=== PATIENT | female | born 1970 | race African-American/Black ===

== ENCOUNTER → 2016-08-27 | Outpatient (CLI) | payer BC ==
--- NOTE | 2016-08-27 13:29 | RAD ---
DATE: 08/27/2016. EXAM: DIGITAL SCREEN BILAT W/CAD HISTORY: Screening. COMPARISON: 08/18/2015. This study was interpreted with the benefit of Computerized Aided Detection (CAD). FINDINGS: Both breasts are heterogeneously dense, limiting the sensitivity of mammography. No dominant mass or malignant appearing microcalcifications are seen. The axillae are unremarkable. IMPRESSION: No mammographic features suspicious for malignancy are identified. BI-RADS CATEGORY: 1 NEGATIVE RECOMMENDED FOLLOW-UP: 12M 12 MONTH FOLLOW-UP PQRS compliance statement: Patient information was entered into a reminder system with a target due date for the next mammogram. Mammography is a sensitive method for finding small breast cancers, but it does not detect them all and is not a substitute for careful clinical examination. A negative mammogram does not negate a clinically suspicious finding and should not result in delay in biopsying a clinically suspicious abnormality. "Our facility is accredited by the [employer] Mammography [employer]."
== END | disposition home or self-care (01) ==
LOC: MAMMO 10:03
PROVIDERS: ATTEND Internal Medicine
DX: Z12.31 Encounter for screening mammogram for malignant neoplasm of breast (principal)
CPT/HCPCS: G0202; 77067

== ENCOUNTER → 2017-09-02 | Outpatient (CLI) | payer BC | END | disposition home or self-care (01) | LOC: MAMMO 09:52 | DX: Z12.31 Encounter for screening mammogram for malignant neoplasm of breast (principal) | CPT/HCPCS: 77067 ==

== ENCOUNTER → 2018-09-04 | Outpatient (CLI) | payer BC ==
--- NOTE | 2018-09-04 09:41 | RAD ---
DATE: 09/04/2018 EXAM: MAMMO GERALDO SCREENING BILATERAL HISTORY: Screening Mammogram COMPARISON: Mammogram 09/02/2017, 08/27/2016, 08/18/2015 This study was interpreted with the benefit of Computerized Aided Detection (CAD). The breast parenchyma is dense, which could reduce the sensitivity of mammography. Breast parenchyma level density D. FINDINGS: Bilateral digital 2-D and 3-D tomosynthesis CC and MLO views. No suspicious mass, calcification or architectural distortion. No significant change from prior examination IMPRESSION: No mammographic evidence of malignancy. Recommend routine screening mammogram in 12 months. BI-RADS CATEGORY: 1 NEGATIVE RECOMMENDED FOLLOW-UP: 12M 12 MONTH FOLLOW-UP PQRS compliance statement: Patient information was entered into a reminder system with a target due date for the next mammogram. Mammography is a sensitive method for finding small breast cancers, but it does not detect them all and is not a substitute for careful clinical examination. A negative mammogram does not negate a clinically suspicious finding and should not result in delay in biopsying a clinically suspicious abnormality. "Our facility is accredited by the [employer]."
== END | disposition home or self-care (01) ==
LOC: MAMMO 09:03
PROVIDERS: ATTEND Internal Medicine
DX: Z12.31 Encounter for screening mammogram for malignant neoplasm of breast (principal)
CPT/HCPCS: 77063; 77067

== ENCOUNTER 2018-10-31 06:07 | Day surgery (SDC) | payer BC ==
[~2018-10-31] VITALS: Ht 172.7 cm; Wt 171.2 kg
[~2018-10-31 06:07] MED LIST: ASCO100T4 PO; BIOT1TAB2 PO; IBUP-1060 PO; MULT-245 PO
[2018-10-31] MEDS ORDERED: PROCHLORPERAZINE 10 MG/2 ML VIAL. IV PRN (07:00)
[2018-10-31] MEDS ORDERED: ONDANSETRON PF 4 MG/2 ML VIAL. IV PRN (07:00)
[2018-10-31] MEDS ORDERED: IV RINGERS,LACTATED 1000ML 1,000 ML IV SCH (07:00)
[2018-10-31] MEDS ORDERED: HYDROmorphone 2 MG/ML VIAL IV PRN (07:00)
[2018-10-31] MEDS ORDERED: fentaNYL PF VIAL 100 MCG/2 ML VIAL IV PRN ×2 (07:00)
[2018-10-31] MEDS ORDERED: MORPHINE SULFATE 2 MG/ML VIAL. IV PRN (07:00)
[2018-10-31] MEDS ORDERED: ceFAZolin 2GM PREMIX 2 GM/50 ML BAG IV ONE (07:00)
[2018-10-31 07:19] LABS: U PREG PATIENT NEGATIVE (NEG)
[2018-10-31] MEDS ORDERED: fentaNYL PF VIAL 100 MCG/2 ML VIAL ONE (07:22)
[2018-10-31] MEDS ORDERED: MIDAZOLAM HCL/PF 2 MG/2 ML VIAL. ONE (07:22)
[2018-10-31] MEDS ORDERED: LIDOCAINE 2% PF 5 ML VIAL. ONE (07:23)
[2018-10-31] MEDS ORDERED: DEXAMETHASONE SOD PHOS 20 MG/5 ML VIAL. ONE (07:23)
[2018-10-31] MEDS ORDERED: ONDANSETRON PF 4 MG/2 ML VIAL. ONE (07:23)
[2018-10-31] MEDS ORDERED: PROPOFOL 20 ML IV ONE (07:23)
--- NOTE | 2018-10-31 08:59 | PDOC4 ---
Operative Note Operative Note Date: 10/31/2018 Preoperative diagnosis: Left upper arm mass Postoperative diagnosis: Same Procedure: Excision of left upper arm mass Surgeon: Gama Specimen: Left upper arm mass 12 x 10 cm Dictation: Patient is a 48-year-old female was described an enlarging mass of her left upper arm in the triceps area. Procedure of excision was explained to the patient detail risk benefits were also discussed including bleeding infection alternatives to this procedure also discussed with the patient who seemed to understand and gave both verbal and written consent to have the procedure performed. Patient was taken to the operating room placed in supine position general anesthesia was initiated with LMA and her left arm was placed in a gutierres to expose the triceps area this area was prepped and draped usual sterile fashion using ChloraPrep area over the mass was injected with quarter percent Marcaine with epinephrine incision was made with 10 blade scalpel was carried down through the subcutaneous tissue using the cautery by hemostasis the mass was excised with electrocautery appeared to be a lipomatous mass sent for pathology. The wound was then closed in 2 layers a deep layer running 3-0 Vicryl and skin was approximate for septic to Monocryl Mastisol Steri-Strips and 4 x 4's and a Kerlix wrap were applied as a dressing. Patient was awakened expend an operating room taken to recovery in stable condition all sponge instrument needle counts listed as correct estimated blood loss 10 mL TERRY TRUJILLO MD Oct 31, 2018 08:58
--- NOTE | 2018-10-31 09:01 | DISCH ---
DISCHARGE INSTRUCTIONS Condition on Discharge Condition on Discharge: Stable Activity After Discharge Activity Instructions for Disc: Avoid exertion Diet after Discharge Diet after Discharge: Regular Wound Incision Care Other wound/incision instructi: May shower in 24 hours Contacting the after DC Call your doctor for: If your condition worsens Follow-Up Follow up with: Dr. Trujillo in 2 weeks TERRY TRUJILLO MD Oct 31, 2018 09:01
[2018-10-31] MEDS ORDERED: HYDROcodone/APAP 5/325MG 1 TAB TABLET PO ONE ×2 (09:15)
[2018-10-31] MEDS ORDERED: HYDR-3164 PO (09:23)
[2018-10-31 10:00] VITALS: BP 107/70
--- NOTE | 2018-11-04 09:12 | PATHOLOGY ---
[facility] Accession Number: [id number] . 01 Material submitted: . LEFT UPPER ARM LIPOMA . 01 Clinical history: . Left upper lipoma . 02 Diagnosis: Fibroadipose tissue, left upper arm lesion excision: - Lipoma. (JPM:suhas; 11/03/2018) QMS/11/03/2018 . 02 Comment: There is no evidence of malignancy. . 02 Electronically signed: . Jimmy Ji MD, Pathologist NPI- [id number] . 01 Gross description: . The specimen is received in formalin, labeled "Zuleika Henry, left upper arm lipoma", is a roughly oval yellow lobulated adipose tissue weighing 173 g and measuring 12.0 x 8.2 x 2.5 cm. The external surface is partially covered by thin aragon-white membrane. The specimen is inked black, serially sectioned, and cut surfaces reveal hahn-yellow lobulated soft tissue. No hemorrhage or necrosis is identified. The specimen is fixed overnight prior to submission of sections. [employer] Lab Technician sections are submitted in cassettes A1-A6, with two sections in each cassette. ([facility]; 11/02/2018) [facility] . 02 Pathologist provided ICD-10: D17.21 . 02 CPT . 791476 Specimen Comment: A courtesy copy of this report has been sent to Specimen Comment: [phone]. Specimen Comment: Report sent to Performed at: 01 [facility] [address] [id number] MD Tj Kate MD Phone: [phone] Performed at: 02 [facility] [address] [place], [place] [id number] MD Jimmy Ji MD Phone: [phone]
== END 2018-10-31 10:19 | disposition home or self-care (01) ==
LOC: SURG 06:07
PROVIDERS: ATTEND Surgery
DX: D17.22 Benign lipomatous neoplasm of skin and subcutaneous tissue of left arm (principal); Z72.89 Other problems related to lifestyle; Z98.890 Other specified postprocedural states; Z79.899 Other long term (current) drug therapy
CPT/HCPCS: 24071; 81025; 88304; A7015; J0696; J1100; J2001; J2250; J2405; J2704; J3010

== ENCOUNTER → 2019-09-08 | Outpatient (CLI) | payer BC ==
[~2019-09-08] MED LIST changes: +HYDR-3164 PO
--- NOTE | 2019-09-09 08:47 | RAD ---
History: Routine screening. Technique: Bilateral digital mammographic routine views with 2-D and 3-D technique were obtained with CAD - computer aided detection. Comparison: 09/04/2018. Findings: Breast Tissue Density D :The breast tissue is extremely dense, lowering the sensitivity of the examination. There are no suspicious masses, microcalcifications or areas of architectural distortion. Impression: Dense breast tissue. No suspicious abnormality noted. BI-RADS Category 1: Negative. Normal interval followup. Your mammogram demonstrates that you have dense breast tissue, which could hide abnormalities, and if you have other risk factors for breast cancer that have been identified, you might benefit from supplemental screening tests that may be suggested by your ordering physician. Dense breast tissue, in and of itself, is a relatively common condition. This information is not provided to cause undue concern, but rather to raise your awareness and to promote discussion with your physician regarding the presence of other risk factors, in addition to dense breast tissue. A report of your mammography results will be sent to you and your physician. You should contact your physician if you have any questions or concerns regarding this report. A mammogram does not have 100% sensitivity and therefore a negative imaging study should not delay further work up of a suspicious abnormality. The patient will receive a letter with the results in the mail. Patient information is entered into the reminder system with a target due date for the next screening mammogram. The patient will receive a reminder. "Our facility is accredited by the [employer] Mammography [employer]." BI-RADS 1 -- negative findings (within normal)
== END | disposition home or self-care (01) ==
LOC: MAMMO 08:58
PROVIDERS: ATTEND Obstetrics & Gynecology
DX: Z12.31 Encounter for screening mammogram for malignant neoplasm of breast (principal); N64.89 Other specified disorders of breast
CPT/HCPCS: 77063; 77067

== ENCOUNTER → 2020-09-12 | Outpatient (CLI) | payer BC ==
--- NOTE | 2020-09-14 19:58 | RAD ---
DATE: 09/12/2020 EXAM: MAMMO GERALDO SCREENING BILATERAL HISTORY: Screening COMPARISON: 09/08/2020: 03/09/2018, 09/02/2017 08/16/2014 This study was interpreted with the benefit of Computerized Aided Detection (CAD). Breast Density: DENSE The breast parenchyma is dense, which could reduce the sensitivity of mammography. Breast parenchyma level density D. FINDINGS: No suspicious mass, calcification, or architectural distortion in either breast. IMPRESSION: No evidence of malignancy. BI-RADS CATEGORY: 1 NEGATIVE RECOMMENDED FOLLOW-UP: 12M 12 MONTH FOLLOW-UP PQRS compliance statement: Patient information was entered into a reminder system with a target due date for the next mammogram. Mammography is a sensitive method for finding small breast cancers, but it does not detect them all and is not a substitute for careful clinical examination. A negative mammogram does not negate a clinically suspicious finding and should not result in delay in biopsying a clinically suspicious abnormality. "Our facility is accredited by the [employer]ammography [employer]."
== END ==
LOC: MAMMO 11:02
PROVIDERS: ATTEND Obstetrics & Gynecology
DX: Z12.31 Encounter for screening mammogram for malignant neoplasm of breast (principal)
CPT/HCPCS: 77063; 77067

== ENCOUNTER → 2021-09-13 | Outpatient (CLI) | payer BC ==
--- NOTE | 2021-09-13 16:09 | RAD ---
Bilateral digital screening 2-D and 3-D (tomosynthesis) mammogram: Reason for examination: Routine screening. Comparison is made to previous mammograms from 09/12/2020 and 09/08/2019. Bilateral mammograms in CC and oblique projections were obtained with 2-D imaging and 3-D tomosynthes is imaging and reviewed on the workstation. Interpretation was made with the benefit of CAD. Findings: Breast density: Category D. The breasts are extremely dense which lowers sensitivity of mammography. There are no suspicious masses, malignant appearing calcifications or architectural distortion. Impression: No evidence of malignancy. ASSESSMENT: BI-RADS 1. Negative. Recommendations: Routine screening mammograms. This patient's information has been entered into a reminder system for the patient to be notified wit h the results of her examination and a target date for the next mammogram. Your patient's mammogram demonstrates that she has dense breast tissue (breast density category C or D), which could hide abnormalities, and if she has other risk factors for breast cancer that have bee n identified, she might benefit from supplemental screening tests that may be suggested by you as her ordering physician. Dense breast tissue, in and of itself, is a relatively common condition. Therefo re, this information is not provided to cause undue concern, but rather to raise your awareness and t o promote discussion with your patient regarding the presence of other risk factors, in addition to d ense breast tissue. Electronically signed by: Daniella Wood MD (09/13/2021 4:06 PM) [id number]
== END ==
LOC: MAMMO 10:08
PROVIDERS: ATTEND Internal Medicine
DX: Z12.31 Encounter for screening mammogram for malignant neoplasm of breast (principal)
CPT/HCPCS: 77063; 77067